=== PATIENT | male | born 1975 | race Caucasian/White ===

== ENCOUNTER 2024-12-01 00:54 | Emergency (ER) | payer OTHER ==
[2024-12-01] MEDS ORDERED: ONDANSETRON 4 MG/2 ML VIAL ONE (01:12)
[2024-12-01] MEDS ORDERED: MORPHINE 4 MG/ML SYR ONE ×2 (01:13→04:01)
[2024-12-01] MEDS ORDERED: NA CHLORIDE 0.9% 1,000 ML ONE (01:13)
[2024-12-01 01:59] LABS: Anion Gap 9.9 mEq/L (5.0-15.0); BUN Blood Urea Nitrogen 22.0 mg/dL (7-18); Glucose Level 132.0 mg/dL (74-106); Potassium 3.9 mEq/L (3.5-5.1)
[2024-12-01 02:02] LABS: Absolute Lymphocytes (CBC) 1.1 K/uL (0.7-4.9); Hematocrit 35.5 % (39.6-49.0); Hemoglobin 12.2 g/dL (13.6-17.9); MCH 30.3 pg (27.0-35.0); MCHC 34.5 g/dL (32.0-36.0); MCV 88.0 fL (80-100); MPV 8.1 fL (7.6-11.3); Nucleated RBC Absolute Count 0.0 (0-0); Nucleated Red Blood Cells % 0.1 % (0-0); RBC Red Blood Cell Count 4.03 M/uL (4.33-5.43); White Blood Count 2.10 thou/uL (4.3-10.9)
[2024-12-01 02:37] LABS: PT Prothrombin Time 11.5 SECONDS (10-13.0); PTT, Activated Partial Thromb 29.1 SECONDS (27.2-37.4); Protime INR 1.02
--- NOTE | 2024-12-01 04:08 | EDPHYS ---
Physician Documentation [facility] Name: Dennis Meade Age: 49 yrs Sex: Male : 1975 Arrival Date: 12/01/2024 Time: 00:54 Bed 14 Private MD: ED Physician Adan Estrada HPI: 12/01 01:07 This 49 yrs old Male presents to ER via EMS with complaints of Headache. rn 01:07 The patient complains of pain to the top of head. Patient reports headache, top and rn back of head. Denies any fever or chills. No focal neurological deficit. No vision changes. No diplopia. No vomiting. No trauma.. Historical: - Allergies: 01:02 Vancomycin (Itching); br2 - PMHx: 01:02 HIV positive; menigitis; neuropathy; br2 - PSHx: 01:02 Spinal tap; br2 - Immunization history:: Adult Immunizations up to date. - Infectious Disease History:: HIV. - Social history:: Smoking status: Patient reports the use of cigarette tobacco products, smokes one-half pack cigarettes per day, Patient/guardian denies using alcohol, street drugs. - Family history:: not pertinent. - Hospitalizations: : No recent hospitalization is reported. ROS: 01:07 Constitutional: Negative for fever, chills, and weight loss, Neck: Negative for injury, rn pain, and swelling, Cardiovascular: Negative for chest pain, palpitations, and edema, Respiratory: Negative for shortness of breath, cough, wheezing, and pleuritic chest pain, Abdomen/GI: Negative for abdominal pain, nausea, vomiting, diarrhea, and constipation, MS/Extremity: Negative for injury and deformity, Skin: Negative for injury, rash, and discoloration, Neuro: Positive for headache Exam: 01:07 Constitutional: This is a well developed, well nourished patient who is awake, alert, rn and in no acute distress. Head/Face: Normocephalic, atraumatic. Eyes: Pupils equal round and reactive to light, extra-ocular motions intact. Cardiovascular: Bradycardic, regular. No pulse deficits. Respiratory: No increased work of breathing, no retractions or nasal flaring. MS/ Extremity: Pulses equal, no cyanosis. Neurovascular intact. Full, normal range of motion. Equal circumference. Neuro: Awake and alert, GCS 15, oriented to person, place, time, and situation. Cranial nerves II-XII grossly intact. Motor strength 5/5 in all extremities. Sensory grossly intact. Cerebellar exam normal. Vital Signs: 00:58 BP 143 / 91; Pulse 54; Resp 18; Temp 97.1(O); Pulse Ox 99% on R/A; Weight 81.65 kg; br2 Height 6 ft. 4 in. ; Pain 10/10; 01:16 BP 121 / 81; Pulse 49; Resp 18; Pulse Ox 97% on R/A; Pain 10/10; tb4 02:10 BP 126 / 77; Pulse 53; Resp 18; Pulse Ox 100% on R/A; tb4 03:00 BP 114 / 75; Pulse 56; Resp 18; Pulse Ox 97% on R/A; Pain 10/10; tb4 04:17 BP 111 / 75; Pulse 52; Resp 18; Pulse Ox 99% on R/A; Pain 10/10; tb4 00:58 Body Mass Index 21.91 (81.65 kg, 193.04 cm) br2 00:58 Pain Scale: Adult br2 01:16 Pain Scale: Adult tb4 03:00 Pain Scale: Adult tb4 04:17 Pain Scale: Adult tb4 [place] Coma Score: 03:41 Eye Response: spontaneous(4). Motor Response: obeys commands(6). Verbal Response: rn oriented(5). Total: 15. MDM: 00:56 Medical Screening Exam initiated rn 03:41 Differential diagnosis: cerebral abscess, hypertensive headache, intracerebral rn hemorrhage, migraine, neoplasm, tension headache, vasomotor headache. Data reviewed: vital signs, nurses notes, lab test result(s), radiologic studies, CT scan. Refusal of service: The patient/guardian displays adequate decision making capability and despite a detailed discussion of alternatives, benefits, risks, and consequences refuses: Lumbar Puncture procedure. ED course: CT head without acute findings. Lab work unremarkable and seems to be at his baseline WBC. Given patient's history of cryptococcal meningitis I recommended LP to rule it out and patient refuses. States he will only get fluoroscopy guided LP. I told him we do not have IR here at 3 in the morning to perform elective lumbar puncture and recommend bedside lumbar puncture. Patient refuses. Patient has been sleeping comfortably and does not seem to be in as much pain as he is describing. Patient would like to be transferred to [place] for his headache and fluoroscopy guided lumbar puncture. Patient states that we transferred him last time and he got the lumbar puncture and it was normal revealing that he did not have meningitis. I explained to him that we cannot transfer him emergently and utilize ambulance every time he presents with a headache. Patient understands and states that he will go home instead. I gave him strict return precautions and he understands.. 04:05 Counseling: I had a detailed discussion with the patient and/or guardian regarding the rn historical points, exam findings, and any diagnostic results supporting the discharge/admit diagnosis, lab results, radiology results, the need for outpatient follow up, to return to the emergency department if symptoms worsen or persist or if there are any questions or concerns that arise at home. 12/01 00:56 Order name: CBC with Diff; Complete Time: 02:19 rn 12/01 00:56 Order name: Basic Metabolic Panel; Complete Time: 02:19 rn 12/01 00:56 Order name: Protime (+inr); Complete Time: 02:53 rn 12/01 00:56 Order name: Ptt, Activated; Complete Time: 02:53 rn 12/01 00:56 Order name: CT Head Brain wo Cont rn 12/01 00:56 Order name: Head Angio CT rn 12/01 00:56 Order name: IV Start; Complete Time: 02:31 rn Administered Medications: 01:46 Drug: morphine IVP or IV 4 mg IVP once over 4 mins Route: IVP; Infused Over: 4 mins; br2 Site: left forearm; 04:05 Follow up: Response: No adverse reaction tb4 01:46 Drug: Ondansetron IVP 4 mg IVP once; over 2 minutes Route: IVP; Site: left forearm; br2 04:05 Follow up: Response: No adverse reaction tb4 01:46 Drug: NS 0.9% IV 1000 ml IV at 1000 ml once; to be given as a bolus over 60 minutes br2 Route: IV; Rate: 1000 ml; Site: left forearm; 04:06 Follow up: Response: No adverse reaction; IV Status: Completed infusion tb4 04:13 Drug: morphine IVP or IV 4 mg IVP once over 4 mins Route: IVP; Infused Over: 4 mins; tb4 Site: right antecubital; 05:03 Follow up: Response: No adverse reaction; Pain is decreased; RASS: Alert and Calm (0) tb4 Disposition Summary: 12/01/24 04:08 Discharge Ordered Notes: Location: Home rn Problem: new rn Symptoms: have improved rn Condition: Stable rn Diagnosis - Headache rn Followup: rn - With: Private Physician - When: As needed - Reason: Recheck today's complaints, Re-evaluation by your physician Discharge Instructions: - Discharge Summary Sheet rn - General Headache Without Cause rn Forms: - Medication Reconciliation Form rn - Antibiotic lathe turner - Prescription Opioid Use rn - Patient Portal Instructions rn - Leadership Thank You Letter rn Signatures: Dispatcher [employer] EDMS Adan Estrada MD MD rn Riddle, Belinda RN RN br2 Jasmin Sesay RN RN tb4 Corrections: (The following items were deleted from the chart) 00:57 00:57 Head Angio+CT.RAD.BRZ ordered. EDMS EDMS 00:57 00:57 CBC+H.LAB.BRZ ordered. EDMS EDMS 00:57 00:57 BASIC METABOLIC PANEL+C.LAB.BRZ ordered. EDMS EDMS 00:57 00:57 PROTIME (+INR)+COAG.LAB.BRZ ordered. EDMS EDMS 00:57 00:57 PTT, ACTIVATED+COAG.LAB.BRZ ordered. EDMS EDMS
--- NOTE | 2024-12-01 04:08 | ER ---
Nurse's Notes [facility] Name: Dennis Meade Age: 49 yrs Sex: Male : 1975 Arrival Date: 12/01/2024 Time: 00:54 Bed 14 Private MD: Diagnosis: Headache Presentation: 12/01 00:58 Chief complaint: Patient states: PT C/O HEADACHE...PT DENIES N/V/BLURRED VISION OR br2 DIZZINESS. Coronavirus screen: Client denies travel out of the [place] in the last 14 days. Ebola Screen: Patient denies exposure to infectious person. Initial Sepsis Screen: Does the patient meet any 2 criteria? No. Patient's initial sepsis screen is negative. Does the patient have a suspected source of infection? No. Patient's initial sepsis screen is negative. Risk Assessment: Do you want to hurt yourself or someone else? Patient reports no desire to harm self or others. Onset of symptoms is unknown. 00:58 Method Of Arrival: EMS: [facility] br2 00:58 Acuity: STORM 4 br2 Triage Assessment: 01:02 General: Appears uncomfortable, slender, Behavior is cooperative, agitated. Pain: br2 Complains of pain in top of head and forehead Pain currently is 10 out of 10 on a pain scale. 02:02 Neuro: Sinha Agitation-Sedation Scale (RASS): 0 - Alert and Calm Level of br2 Consciousness is awake, Oriented to person, place, time, situation, Reports headache frontal area. Historical: - Allergies: 01:02 Vancomycin (Itching); br2 - PMHx: 01:02 HIV positive; menigitis; neuropathy; br2 - PSHx: 01:02 Spinal tap; br2 - Immunization history:: Adult Immunizations up to date. - Infectious Disease History:: HIV. - Social history:: Smoking status: Patient reports the use of cigarette tobacco products, smokes one-half pack cigarettes per day, Patient/guardian denies using alcohol, street drugs. - Family history:: not pertinent. - Hospitalizations: : No recent hospitalization is reported. Screenin:58 [facility] ED Fall Risk Assessment (Adult) History of falling in the last 3 months, br2 including since admission No falls in past 3 months (0 pts) Confusion or Disorientation No (0 pts) Intoxicated or Sedated No (0 pts) Impaired Gait No (0 pts) Mobility Assist Device Used No (0 pt) Altered Elimination No (0 pt) Score/Fall Risk Level 0 - 2 = Low Risk Oriented to surroundings. Abuse screen: Denies threats or abuse. Denies injuries from another. Nutritional screening: No deficits noted. Tuberculosis screening: No symptoms or risk factors identified. Assessment: 01:00 Reassessment: Patient is alert, oriented x 3, equal unlabored respirations, skin tb4 warm/dry/pink. See triage note. General: Appears uncomfortable, Behavior is calm, cooperative. Pain: Complains of pain in forehead Pain does not radiate. Pain currently is 10 out of 10 on a pain scale. Quality of pain is described as aching, Pain began gradually, Is continuous. Neuro: Level of Consciousness is awake, alert, obeys commands, Oriented to person, place, time, situation, Catastrophe Claims Supervisor are equal bilaterally Moves all extremities. Full function Gait is steady, Speech is normal, Facial symmetry appears normal. Respiratory: Airway is patent Trachea midline Respiratory effort is even, unlabored, Respiratory pattern is regular, symmetrical. GI: No deficits noted. No signs and/or symptoms were reported involving the gastrointestinal system. : No deficits noted. No signs and/or symptoms were reported regarding the genitourinary system. EENT: Derm: Skin is intact. Vital Signs: 00:58 BP 143 / 91; Pulse 54; Resp 18; Temp 97.1(O); Pulse Ox 99% on R/A; Weight 81.65 kg; br2 Height 6 ft. 4 in. ; Pain 10/10; 01:16 BP 121 / 81; Pulse 49; Resp 18; Pulse Ox 97% on R/A; Pain 10/10; tb4 02:10 BP 126 / 77; Pulse 53; Resp 18; Pulse Ox 100% on R/A; tb4 03:00 BP 114 / 75; Pulse 56; Resp 18; Pulse Ox 97% on R/A; Pain 10/10; tb4 04:17 BP 111 / 75; Pulse 52; Resp 18; Pulse Ox 99% on R/A; Pain 10/10; tb4 00:58 Body Mass Index 21.91 (81.65 kg, 193.04 cm) br2 00:58 Pain Scale: Adult br2 01:16 Pain Scale: Adult tb4 03:00 Pain Scale: Adult tb4 04:17 Pain Scale: Adult tb4 [place] Coma Score: 03:41 Eye Response: spontaneous(4). Motor Response: obeys commands(6). Verbal Response: rn oriented(5). Total: 15. ED Course: 00:55 Patient arrived in ED. rn 00:56 Adan Estrada MD is Attending Physician. rn 00:58 Patient has correct armband on for positive identification. Bed in low position. Call br2 light in reach. Side rails up X 1. Provided Education on: PLAN OF CARE. 01:02 Triage completed. br2 01:02 Arm band placed on right wrist. br2 01:16 No provider procedures requiring assistance completed. tb4 01:46 Inserted saline lock: 22 gauge in left forearm, using aseptic technique. br2 02:46 CT Head Brain wo Cont In Process Unspecified. EDMS 02:46 Inserted saline lock: 18 gauge in right upper arm, using aseptic technique. ,using bm8 aseptic technique. ultrasound guided Flushed with 10 mL NS. 03:[address] In Process Unspecified. EDMS 05:05 IV discontinued, intact, bleeding controlled, No redness/swelling at site. Pressure tb4 dressing applied. Administered Medications: 01:46 Drug: morphine IVP or IV 4 mg IVP once over 4 mins Route: IVP; Infused Over: 4 mins; br2 Site: left forearm; 04:05 Follow up: Response: No adverse reaction tb4 01:46 Drug: Ondansetron IVP 4 mg IVP once; over 2 minutes Route: IVP; Site: left forearm; br2 04:05 Follow up: Response: No adverse reaction tb4 01:46 Drug: NS 0.9% IV 1000 ml IV at 1000 ml once; to be given as a bolus over 60 minutes br2 Route: IV; Rate: 1000 ml; Site: left forearm; 04:06 Follow up: Response: No adverse reaction; IV Status: Completed infusion tb4 04:13 Drug: morphine IVP or IV 4 mg IVP once over 4 mins Route: IVP; Infused Over: 4 mins; tb4 Site: right antecubital; 05:03 Follow up: Response: No adverse reaction; Pain is decreased; RASS: Alert and Calm (0) tb4 Medication: 01:16 VIS not applicable for this client. tb4 Outcome: 04:08 Discharge ordered by . mariela 05:05 Discharged to home ambulatory, tb4 05:05 Condition: stable 05:05 Discharge instructions given to patient, Instructed on discharge instructions, follow up and referral plans. Demonstrated understanding of instructions, 05:06 Patient left the ED. tb4 Signatures: Dispatcher [employer] EDMS Adan Estrada MD MD rn McDonald, Brad, RN RN bm8 Francine Abreu RN RN br2 Jasmin Sesay, RN RN tb4
--- NOTE | 2024-12-01 05:08 | RAD REPORT ---
PROCEDURE: CT Head Without Intravenous Contrast CLINICAL INDICATION: The patient is 49 years old and is Male; Headache. TECHNIQUE: Axial computed tomography images of the head/brain without intravenous contrast. Sagittal and coron al reformatted images were created and reviewed. This CT exam was performed using one or more of the following dose reduction techniques: automated exposure control, adjustment of the mA and/or kV according to patient size, and/or use of iterative reconstruction technique. COMPARISON: CT Head 11/13/2024. FINDINGS: BRAIN: Redemonstrated remote left medial inferior occipital cortical infarct with associated enceph alomalacia. No extra-axial fluid collection. No abnormal mass effect. No appreciable cerebral edema. No intracranial hemorrhage. No transtentorial herniation. No acute focal mcgill-white matter differentiation abnormality. MIDLINE SHIFT: No midline shift. VENTRICLES: Unremarkable No ventriculomegaly. BONES/JOINTS: No fracture of the calvarium or visualized facial bones. SOFT TISSUES: Unremarkable SINUSES: Trace left sphenoid sinus effusion. MASTOID AIR CELLS: Right mastoidectomy changes with small effusions noted. IMPRESSION: 1. No acute intracranial abnormality. 2. Redemonstrated remote left medial inferior occipital cortical infarct with associated encephalom alacia. 3. Right mastoidectomy changes with small effusion noted. Electronically signed by: Dino Lozano MD 12/01/2024 03:20 AM CDT Due to temporary technical issues with the PACS/[employer] reporting system, reports are being wayne d by the in-house radiologist without review as a courtesy to ensure prompt reporting the interpreting radiologist is fully responsible for the content of the report. Transcribed Date/Time: 12/01/2024 5:07 AM
--- NOTE | 2024-12-01 05:09 | RAD REPORT ---
PROCEDURE: CT Angiography Head With Intravenous Contrast CLINICAL INDICATION: The patient is 49 years old and is Male; Headache. TECHNIQUE: Axial computed tomographic angiography images of the head with intravenous contrast. Sagittal and c oronal reformatted images were created and reviewed. This CT exam was performed using one or more of the following dose reduction techniques: automated exposure control, adjustment of the mA and/or kV according to patient size, and/or use of iterative reconstruction technique. MIP reconstructed images were created and reviewed. COMPARISON: CT Head 12/01/2024. FINDINGS: RIGHT INTERNAL CAROTID ARTERY: No acute findings. Intracranial segment is patent with no signific ant stenosis. No aneurysm. RIGHT ANTERIOR CEREBRAL ARTERY: Unremarkable No occlusion or significant stenosis. No aneurysm. RIGHT MIDDLE CEREBRAL ARTERY: Unremarkable No occlusion or significant stenosis. No aneurysm. RIGHT POSTERIOR CEREBRAL ARTERY: Unremarkable No occlusion or significant stenosis. No aneurysm . RIGHT VERTEBRAL ARTERY: Unremarkable as visualized. LEFT INTERNAL CAROTID ARTERY: No acute findings. Intracranial segment is patent with no significa nt stenosis. No aneurysm. LEFT ANTERIOR CEREBRAL ARTERY: Unremarkable No occlusion or significant stenosis. No aneurysm. LEFT MIDDLE CEREBRAL ARTERY: Unremarkable No occlusion or significant stenosis. No aneurysm. LEFT POSTERIOR CEREBRAL ARTERY: Unremarkable No occlusion or significant stenosis. No aneurysm. LEFT VERTEBRAL ARTERY: Unremarkable as visualized. BASILAR ARTERY: Unremarkable No occlusion or significant stenosis. No aneurysm. SINUSES: Partial opacification of the right maxillary sinus with a small left sphenoid sinus effusi on. MASTOID AIR CELLS: Right mastoidectomy redemonstrated with persistent right mastoid air cell effusi on. IMPRESSION: 1. No occlusion, high-grade stenosis, or acute abnormality of the central intracranial arteries. No appreciable vascular malformation. 2. Right mastoidectomy redemonstrated with persistent right mastoid air cell effusion. 3. Partial opacification of the right maxillary sinus with a small left sphenoid sinus effusion. Electronically signed by: Dino Lozano MD 12/01/2024 04:05 AM CDT RP Due to temporary technical issues with the PACS/[employer] reporting system, reports are being wayne d by the in-house radiologist without review as a courtesy to ensure prompt reporting the interpreting radiologist is fully responsible for the content of the report. Transcribed Date/Time: 12/01/2024 5:09 AM
[2024-12-01 05:21] VITALS: TEMP 97.1
[2024-12-01 05:36] VITALS: BP 111/75; O2SAT 99
== END 2024-12-01 05:06 | disposition home or self-care (01) ==
LOC: ER 00:54
DX: R51.9 Headache, unspecified (principal); F17.210 Nicotine dependence, cigarettes, uncomplicated; Z21 Asymptomatic human immunodeficiency virus [HIV] infection status
CPT/HCPCS: 85025; 80048; 36415; 85610; 85730; 70450; 70496; 99284; Q9967; J2405; J7030